=== PATIENT | male | born 1960 | race Caucasian/White ===

== ENCOUNTER 2024-04-15 11:02 | Outpatient (CLI) | payer MEDICARE, BC | END 2024-04-15 23:59 | disposition home or self-care (01) | LOC: RAD 11:02 | PROVIDERS: ATTEND Nurse Practitioner Family | DX: R13.10 Dysphagia, unspecified (principal); K21.00 Gastro-esophageal reflux disease with esophagitis, without bleeding; K44.9 Diaphragmatic hernia without obstruction or gangrene; F17.210 Nicotine dependence, cigarettes, uncomplicated | CPT/HCPCS: 74230 ==

== ENCOUNTER 2024-09-15 09:38 | Day surgery (SDC) | payer MEDICARE, BC ==
[~2024-09-15] VITALS: Ht 175.3 cm; Wt 68.2 kg
[2024-09-15] VITALS (10 sets, daily range): BP systolic 68–127; BP diastolic 48–82; PULSE 65–78; RESP 12–21; O2SAT 93–100
[~2024-09-15 09:38] MED LIST: ATOR40TA72 PO; BENA1TAB14 PO; HYDR-3972 PO; METO-395 PO; PANT40TA54 PO
[2024-09-15] MEDS ORDERED: propofol inj 40 ML IV ONE (11:46)
[2024-09-15] MEDS ORDERED: fentaNYL/PF 50MCG/1 ML 2ML syringe ONE (11:47)
--- NOTE | 2024-09-16 10:22 | PATHOLOGY REPORT ---
[facility] [address] [place] [address] SURGICAL PATHOLOGY REPORT CaseNumber: [id number] Surgeon:Fidencio Prather M.D. CLINICAL INFORMATION CLINICAL INFORMATION: Dysphagia. DIAGNOSIS DIAGNOSIS: GASTRIC ANTRUM, BIOPSIES X 2 - NO SIGNIFICANT INFLAMMATION, EDEMA, OR VASCULAR CONGESTION - NO INTESTINAL METAPLASIA - NO DYSPLASIA OR MALIGNANCY MICROSCOPIC DESCRIPTION MICROSCOPIC DESCRIPTION: Reviewed is a single H&E-stained slide showing serial sections and levels of two fragments of gastric antral-type mucosa. There is no significant inflammation, edema, or vascula r congestion. There is no intestinal metaplasia. There are no dysplastic or neoplastic features. GROSS DESCRIPTION GROSS DESCRIPTION: Received in a container of formalin labeled with the patient's name, number, and " antrum biopsy" are 2 pieces of bet[place]court tissue 0.2 and 0.3 cm. The specimen is entirely submitted as A1. T he time at which the specimen was removed was 1235. The time at which the specimen was placed in form den was 1236. Electronically signed by: James Blair M.D. 09/16/2024 9:49:00 AM
== END 2024-09-15 14:25 | disposition home or self-care (01) ==
LOC: GI LAB 09:38
PROVIDERS: ATTEND Internal Medicine Gastroenterology
DX: R13.10 Dysphagia, unspecified (principal); K31.89 Other diseases of stomach and duodenum; I25.10 Atherosclerotic heart disease of native coronary artery without angina pectoris; I10 Essential (primary) hypertension; I25.2 Old myocardial infarction; K21.9 Gastro-esophageal reflux disease without esophagitis; Z79.899 Other long term (current) drug therapy; Z98.890 Other specified postprocedural states
CPT/HCPCS: 43239; 43246; 88305; A4620; B4087; J2704; J3010; J7030; Z7512